=== PATIENT | male | born 1990 | race Caucasian/White ===

== ENCOUNTER 2018-02-06 12:07 | Emergency (ER) | payer BC ==
[2018-02-06] MEDS ORDERED: Proparacaine 0.5% Opth 15 ML BOT ONE (12:35)
[2018-02-06] MEDS ORDERED: Fluorescein Opthalmic Strip ONE (12:35)
[2018-02-06] MEDS ORDERED: Adacel (T-DAP) 0.5 ML VIAL ONE (13:10)
== END 2018-02-06 13:37 | disposition home or self-care (01) ==
LOC: SCSER 12:07
DX: S05.01XA Injury of conjunctiva and corneal abrasion without foreign body, right eye, initial encounter (principal); W22.8XXA Striking against or struck by other objects, initial encounter
CPT/HCPCS: 90471; 90715

== ENCOUNTER 2024-12-12 11:44 | Outpatient (CLI) | payer OTHER | END 2024-12-12 11:45 | disposition home or self-care (01) | LOC: SCSRAD 11:44 | PROVIDERS: ATTEND Family Medicine | DX: M25.511 Pain in right shoulder (principal) ==